=== PATIENT | male | born 1965 | race Caucasian/White ===

== ENCOUNTER 2018-02-05 13:17 | Emergency (ER) | payer OTHER ==
[~2018-02-05] VITALS: Ht 175.3 cm; Wt 81.6 kg
[~2018-02-05 13:17] MED LIST: AUGMENTIN 875-1 EACH PO; PERCOCET 5-3251 EACH PO
[2018-02-05 13:58] VITALS: BP 120/76
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
== END 2018-02-05 14:20 ==
LOC: ERH 13:17
DX: Z48.00 Encounter for change or removal of nonsurgical wound dressing (principal)